=== PATIENT | male | born 1980 | race Caucasian/White ===

== ENCOUNTER 2023-03-01 07:25 | Outpatient (OUT) | payer OTHER, SELFPAY ==
[2023-03-01 07:50] LABS: Basophils Absolute Auto 0.1 10^3/uL (0.0-0.1); Basophils Percent Auto 0.7 % (0.2-2.0); Eosinophils Absolute Auto 0.2 10^3/uL (0.0-0.7); Eosinophils Percent Auto 2.1 % (0.9-7.0); Hematocrit 46.5 % (42.0-54.0); Hemoglobin 15.4 g/dL (14.0-18.0); Immature Granulocytes Abs Auto 0.04 10^3/uL (0.00-0.03); Immature Granulocytes Pct Auto 0.4 % (0.0-0.5); Lymphocytes Absolute Auto 3.5 10^3/uL (1.2-3.8); Lymphocytes Percent Auto 35.8 % (20.5-60.0); Mean Corpuscular HGB Conc 33.1 g/dL (29.9-35.2); Mean Corpuscular Hemoglobin 29.7 pg (25.9-34.0); Mean Corpuscular Volume 89.8 fL (80.0-94.0); Mean Platelet Volume 8.9 fL (9.5-13.5); Monocytes Absolute Auto 0.8 10^3/uL (0.3-0.8); Monocytes Percent Auto 7.8 % (1.7-12.0); Neutrophils Absolute Auto 5.2 10^3/uL (1.4-6.5); Neutrophils Percent Auto 53.2 % (43.0-75.0); Platelet Count 290 10^3/uL (150-450); Red Blood Count 5.18 10^6/uL (4.70-6.10); Red Cell Distribution Width 13.3 % (11.0-15.0); White Blood Count 9.7 10^3/uL (4.0-11.0)
[2023-03-01 08:04] LABS: Estimated Average Glucose 103 mg/dL; Glycohemoglobin A1C 5.2 % (4.5-6.2)
[2023-03-01 09:06] LABS: Prostate Specific Antigen Scrn 0.23 ng/mL (<=4.00)
[2023-03-01 10:45] LABS: Alanine Aminotransferase 24 U/L (16-63); Albumin Globulin Ratio 0.9; Albumin Level 3.7 g/dL (3.4-5.0); Alkaline Phosphatase 122 U/L (46-116); Anion Gap 13.9; Aspartate Amino Transferase 20 U/L (15-37); BUN Creatinine Ratio 13.4; Bilirubin Total 0.6 mg/dL (0.2-1.0); Calcium 9.2 mg/dL (8.5-10.1); Carbon Dioxide 24.2 mmol/L (21.0-32.0); Chloride 102 mmol/L (98-107); Chol HDL Ratio 6.4; Cholesterol 212 mg/dL (<=200); Estimated GFR (African America >60 (>=60); Estimated GFR (Non-African Ame >60 (>=60); Glucose 100 mg/dL (74-106); HDL Cholesterol 33 mg/dL (40-60); Potassium 4.1 mmol/L (3.5-5.1); Sodium 136 mmol/L (136-145); Total Protein 7.7 g/dL (6.4-8.2); Triglycerides 101 mg/dL (<=150); VLDL CHOLESTEROL 20.2 mg/dL
== END 2023-03-01 07:26 | disposition home or self-care (01) ==
LOC: LAB 07:29
PROVIDERS: PCP Family Medicine; Visit Provider Family Medicine
DX: Z00.00 Encounter for general adult medical examination without abnormal findings (principal)
CPT/HCPCS: 36415; 80053; 80061; 83036; 85025; G0103